=== PATIENT | male | born 1955 | race Caucasian/White ===

== ENCOUNTER 2016-09-22 12:36 | Day surgery (SDC) | payer BC ==
[~2016-09-22] VITALS: Ht 165.1 cm; Wt 93.4 kg
[~2016-09-22 12:36] MED LIST: ACET160O41 PO; AMLO5TAB4 PO; APIX2.5T PO; CARV25TA79 PO; LOSA1TAB9 PO; PRAV20TA63 PO; ZOF4I IV
[2016-09-22 13:21] VITALS: Ht 165.1 cm; Wt 93.4 kg
[2016-09-22] MEDS ORDERED: FAMO20TA18 PO (13:42)
[2016-09-22] MEDS ORDERED: CILO100T PO (13:42)
[2016-09-22] MEDS ORDERED: ASPI81TA3 PO (13:42)
[2016-09-22] MEDS ORDERED: DABI75CA2 PO (13:42)
[2016-09-22] MEDS ORDERED: GABA100C14 PO (13:42)
[2016-09-22] MEDS ORDERED: CHOL400C PO (13:42)
[2016-09-22] MEDS ORDERED: PROPOFOL 60 ML ONE (14:21)
[2016-09-22 15:22] VITALS: BP 124/74; PULSE 53; RESP 20
--- NOTE | 2016-09-24 07:26 | GILP ---
DATE OF PROCEDURE: 09/22/2016 NAME OF PROCEDURE: Esophagogastroduodenoscopy with biopsies. BRIEF HISTORY AND INDICATIONS: The patient is being evaluated for dyspepsia. PREMEDICATION: Monitored anesthesia care by anesthesiologist. SURGEON: Nina Smith MD. INSTRUMENT USED: Olympus panendoscope. TECHNIQUE: After informed consent, with the patient/relatives understanding the procedure, its indic ations, potential risks and complications, including but not limited to: allergic reaction, bleeding , perforation or infection, and after all pertinent questions were answered to the patients satisfac tion, the patient/relatives signed witnessed informed consent. Following this, premedication was administered slowly IV push under careful cardiovascular and respi ratory monitoring with pulse oximetry, automatic blood pressure and binder stripper machine. Once the sedative effect was achieved the patient was place in the left lateral decubitus, the panen doscope was introduced and advanced under visual control. Careful examination of the upper gastrointestinal tract, both on insertion as well as withdrawal of the instrument disclosed the following findings: ESOPHAGUS: The mucosa of the entire esophagus appears within normal limits. There is no evidence of esophagitis, varices, neoplasm or stricture. No hiatal hernia identified. STOMACH: Upon entrance to the stomach air was insufflated, the gastric renee distended normally. The re was erythema and edema of the mucosa and a linear ulceration in the antrum of the stomach. The u lcer measures approximately 5 mm. Benign endoscopic appearance. No stigmata. Biopsies were obtain ed to rule out H. pylori infection. PYLORUS: The pylorus appears patent and within normal limits, with no evidence of gastric outlet obs truction. DUODENUM: The duodenal mucosa was carefully examined in the duodenal bulb as well as the second port ion of the duodenum and appears unremarkable with no evidence of duodenitis, ulcer or neoplasm. The instrument was then withdrawn, the patient tolerated the procedure well and was transfer out of the endoscopy suite awake, and in good condition to continue recovery under observation IMPRESSION: 1. Linear antral gastric ulcerations, benign endoscopic appearance and no stigmata. 2. Rule out Helicobacter pylori infection, biopsies obtained. PLAN: The patient will be treated with PPIs. Pathology will be reviewed as soon as available. Rep eat endoscopy in 8 weeks is recommended to assess healing of gastric ulceration. Dictated By: NINA SMITH MS/ALTAF Conf#: [id number] [facility]#: [id number]
--- NOTE | 2016-09-24 11:14 | GILP ---
DATE OF PROCEDURE: 09/22/2016 PROCEDURE: Colonoscopy with polyp ablation. BRIEF HISTORY AND INDICATIONS: The patient is being evaluated for colorectal cancer screening. PREMEDICATION: Monitored anesthesia care by anesthesiologist. SURGEON: Nina Smith MD INSTRUMENT USED: Olympus colonoscope. PREPARATION: Adequate. TECHNIQUE: After informed consent, with the patient/relatives understanding the procedure, its indic ations potential risks and complications, including but not limited to: allergic reaction, bleeding, perforation, infection, missed lesions and after all pertinent questions were answered to the patie nt's satisfaction, the patient/relatives signed the witnessed informed consent. Following this, premedication was administered slowly IV push by under careful cardiovascular and re spiratory monitoring with pulse oximetry, automatic blood pressure and mixed crop and livestock farm worker. Once the sedativ e effect was achieved, the patient was placed in the left lateral decubitus position, digital rectal examination was performed. The colonoscope was then introduced and advanced under visual control th roughout all segments of the colon including: the rectum, sigmoid, descending colon, splenic flexure , transverse colon, hepatic flexure, ascending colon and finally reaching the cecum which was clearl y identified by transillumination, finger indentation and the ileocecal valve. Careful examination o f the mucosa of the lower gastrointestinal tract both on insertion as well as withdrawal of the inst rument disclosed the following findings: Rectal Examination: No evidence of perirectal disease, no masses. Colonic Mucosa: There is a 4 mm sessile polyp in the sigmoid colon which was ablated with biopsy for ceps. A 3 mm polyp was noted in the ascending colon which was also ablated with biopsy forceps. Th ere is mild diverticulosis in the left side of the colon. Otherwise, no significant abnormalities a re noted. The ileocecal valve was clearly identified and appears unremarkable. The instrument was withdrawn reexamining the mucosa in detail. No additional abnormalities are noted with the exceptio n of moderate sized internal hemorrhoids. IMPRESSION: 1. A 3 mm sessile polyp ascending colon ablated. 2. A 4 mm sessile polyp sigmoid colon ablated. 3. Mild diverticulosis. 4. Moderate size internal hemorrhoids. PLAN: Pathology will be reviewed as soon as available. Surveillance colonoscopy in 5 years is sole mmended. Dictated By: NINA SMITH MS/ALTAF Conf#: [id number] DID#: [id number] CC: NINA SMITH;*End*
== END 2016-09-22 15:59 | disposition home or self-care (01) ==
LOC: GIL 12:36
PROVIDERS: ATTEND Internal Medicine Gastroenterology
DX: K29.50 Unspecified chronic gastritis without bleeding (principal); D12.2 Benign neoplasm of ascending colon; D12.5 Benign neoplasm of sigmoid colon; K57.90 Diverticulosis of intestine, part unspecified, without perforation or abscess without bleeding; K64.8 Other hemorrhoids; I10 Essential (primary) hypertension; E11.9 Type 2 diabetes mellitus without complications; Z86.73 Personal history of transient ischemic attack (TIA), and cerebral infarction without residual deficits
CPT/HCPCS: 43239; 45380; 88305; 88312; Z7610